=== PATIENT | female | born 1960 | race Two or more races ===

== ENCOUNTER 2021-03-08 21:57 | Emergency (ER) | payer OTHER ==
[~2021-03-08] VITALS: Ht 160 cm; Wt 94.1 kg
[2021-03-08 22:19] VITALS: BP 166/100
[2021-03-08 22:44] LABS: BASOPHILS # (AUTO) 0.1 X10'3 (0-0.2); BASOPHILS % (AUTO) 1.1 % (0-1); EOSINOPHILS # (AUTO) 0.5 X10'3 (0-0.9); EOSINOPHILS % (AUTO) 5.3 % (0-6); HEMATOCRIT 40.8 % (35.0-45.0); HEMOGLOBIN 13.2 g/dl (12.0-16.0); LYMPHOCYTES # (AUTO) 2.9 X10'3 (1.1-4.8); LYMPHOCYTES % (AUTO) 33.1 % (21-51); MEAN CORPUSCULAR HEMOGLOBIN 27.5 PG (27.0-31.0); MEAN CORPUSCULAR HGB CONC 32.4 g/dL (33.0-36.5); MEAN CORPUSCULAR VOLUME 84.8 FL (78-98); MONOCYTES # (AUTO) 0.7 X10'3 (0-0.9); NEUTROPHILS # (AUTO) 4.7 X10'3 (1.8-7.7); NEUTROPHILS % (AUTO) 52.5 % (42-75); PLATELET COUNT 435 X10'3 (140-440); RED BLOOD COUNT 4.81 X10'6 (4.20-5.60); RED CELL DISTRIBUTION WIDTH 14.8 % (11.5-14.5); WHITE BLOOD COUNT 8.9 X10'3 (4.5-11.0)
[2021-03-08 23:00] LABS: ALANINE AMINOTRANSFERASE 28 U/L (12-78); ALBUMIN/GLOBULIN RATIO 1.1 (1.1-1.5); ALKALINE PHOSPHATASE 112 IU/L (46-116); ANION GAP 9 (8-16); ASPARTATE AMINO TRANSFERASE 15 U/L (10-37); BILIRUBIN,TOTAL 0.3 MG/DL (0.1-1.0); BLOOD UREA NITROGEN 16 MG/DL (7-18); BUN/CREATININE RATIO 16.8 (6.6-38.0); CALCIUM 9.2 MG/DL (8.5-10.1); CHLORIDE 104 MMOL/L (99-107); CREATININE 0.95 MG/DL (0.40-0.90); GLUCOSE 102 MG/DL (70-104); LIPASE 89 U/L (73-393); SODIUM 141 MMOL/L (135-145); TOTAL CARBON DIOXIDE 27.7 MMOL/L (24-32); TOTAL PROTEIN 7.5 G/DL (6.4-8.2); eGFR 60 ML/MIN
[2021-03-08] MEDS ORDERED: iohexol 300mg/ml 100ml inj. ONE (23:51)
[2021-03-09 00:04] LABS: COLOR,URINE YELLOW (Yellow); GLUCOSE, URINE NEGATIVE (Neg); KETONES,URINE NEGATIVE (Neg); LEUKOCYTE ESTERASE ,URINE SMALL (Neg); NITRITES, URINE NEGATIVE (Neg); OCCULT BLOOD,URINE NEGATIVE (Neg); PROTEIN,URINE NEGATIVE (Neg); UROBILINOGEN,URINE 0.2 E.U/dL (0.2-1.0)
[2021-03-09 00:12] LABS: UA COLLECTION TYPE CLN CATCH MIDSTREAM
[2021-03-09 00:13] LABS: CLARITY,URINE SLIGHTLY CLOUDY (Clear)
[2021-03-09 00:14] LABS: BACTERIA,URINE FEW /HPF (Neg); MUCUS STRANDS MODERATE /LPF (Neg); RBC,URINE NONE SEEN /HPF (0-2)
[2021-03-09 00:15] LABS: CAL OXALATE CRYSTALS 4+ /HPF (NEGATIVE); SQUAMOUS EPITHELIAL CELL,UR MODERATE /LPF (FEW)
== END 2021-03-09 00:12 | disposition left against medical advice (07) ==
LOC: ER 21:58
DX: R14.0 Abdominal distension (gaseous) (principal); R42 Dizziness and giddiness; E78.00 Pure hypercholesterolemia, unspecified; I10 Essential (primary) hypertension; J45.909 Unspecified asthma, uncomplicated
CPT/HCPCS: 36415; 80053; 81001; 83690; 85025; 87088; 99283; Q9967; 81003

== ENCOUNTER 2021-05-13 14:11 | Emergency (ER) | payer MEDICAID, OTHER ==
[~2021-05-13] VITALS: Ht 160 cm; Wt 99.3 kg
[2021-05-13 14:16] VITALS: BP 150/93
== END 2021-05-13 17:08 | disposition home or self-care (01) ==
LOC: ER 14:11
DX: S22.41XA Multiple fractures of ribs, right side, initial encounter for closed fracture (principal); M25.511 Pain in right shoulder; R07.89 Other chest pain; I25.10 Atherosclerotic heart disease of native coronary artery without angina pectoris; E78.00 Pure hypercholesterolemia, unspecified; I10 Essential (primary) hypertension; J45.909 Unspecified asthma, uncomplicated; W54.1XXA Struck by dog, initial encounter; Y93.89 Activity, other specified; Y92.89 Other specified places as the place of occurrence of the external cause; Y99.8 Other external cause status
CPT/HCPCS: 71250; 93005; 99284

== ENCOUNTER → 2023-12-19 | Outpatient (CLI) | payer MEDICARE, MEDICAID | END | disposition home or self-care (01) | LOC: RAD 11:35 | PROVIDERS: ATTEND Family Medicine | DX: R10.30 Lower abdominal pain, unspecified (principal); Z90.710 Acquired absence of both cervix and uterus | CPT/HCPCS: 76856 ==